=== PATIENT | female | born 1995 | race Caucasian/White ===

== ENCOUNTER 2018-01-17 10:02 | Emergency (ER) | payer OTHER ==
[~2018-01-17] VITALS: Ht 172.7 cm; Wt 86.2 kg
[2018-01-17] MEDS ORDERED: IV NORMAL SALINE 1,000ML 1,000 ML IV SCH (10:18)
[2018-01-17] MEDS ORDERED: ONDANSETRON PF 4 MG/2 ML VIAL. IV ONE (10:45)
[2018-01-17] MEDS ORDERED: FAMOTIDINE 20 MG/2 ML VIAL IVP ONE (10:45)
[2018-01-17 10:53] LABS: BASO % 1 % (0-3); EOS # 0.2 x10^3/uL (0.0-0.7); EOS % 3 % (0-3); HEMATOCRIT 40.3 % (36.0-47.0); HEMOGLOBIN 13.5 g/dL (12.0-15.5); LYMPH # 2.5 x10^3/uL (1.0-4.8); LYMPH % 36 % (24-48); MEAN CORPUSCULAR HEMOGLOBIN 29 pg (25-35); MEAN CORPUSCULAR HGB CONC 34 g/dL (31-37); MEAN CORPUSCULAR VOLUME 87 fL (79-100); MONO # 0.6 x10^3/uL (0.0-1.1); MONO % 9 % (0-9); NEUT # 3.7 x10^3uL (1.8-7.7); NEUT % 52 % (31-73); PLATELET COUNT 217 x10^3/uL (140-400); RED BLOOD COUNT 4.62 x10^6/uL (3.50-5.40); RED CELL DISTRIBUTION WIDTH 12.5 % (11.5-14.5); WHITE BLOOD COUNT 7.1 x10^3/uL (4.0-11.0)
--- NOTE | 2018-01-17 11:01 | PHYS DOC ---
Past History Past Medical History: Anxiety, Other Past Surgical History: Other Alcohol Use: Rarely Drug Use: None Adult General Chief Complaint Chief Complaint: NAUSEA/VOMITING/DIARRHEA HPI HPI Patient is a 22 year old female who presents with complaining of nausea and vomiting and abdominal pain. Patient states she woke up at 8:30 because of epigastric squeezing and constant pain without radiation and rated her pain 8/ 10. Patient complaining of 2 episodes of vomiting with bile material without diarrhea and fever and chills. Patient denies history of vomiting at the states she had had episode of abdominal pain and elevation of liver function tests with outpatient unremarkable upper abdominal ultrasound. Review of Systems Review of Systems Constitutional: Denies fever or chills [] Eyes: Denies change in visual acuity, redness, or eye pain [] HENT: Denies nasal congestion or sore throat [] Respiratory: Denies cough or shortness of breath [] Cardiovascular: No additional information not addressed in HPI [] GI: Reports abdominal pain, nausea, vomiting, denies bloody stools or diarrhea [ ] : Denies dysuria or hematuria [] Musculoskeletal: Denies back pain or joint pain [] Integument: Denies rash or skin lesions [] Neurologic: Denies headache, focal weakness or sensory changes [] Endocrine: Denies polyuria or polydipsia [] All other systems were reviewed and found to be within normal limits, except as documented in this note. Current Medications Current Medications Current Medications Medications (Trade) Dose Ordered Sig/Earl Start Time Stop Time Status Last Admin Dose Admin Famotidine (Pepcid Vial) 20 mg 1X ONCE 01/17/18 10:45 01/17/18 10:46 DC Ondansetron HCl (Zofran) 4 mg 1X ONCE 01/17/18 10:45 01/17/18 10:46 DC Sodium Chloride 1,000 ml @ 1,000 mls/hr Q1H 01/17/18 10:18 01/17/18 11:17 Allergies Allergies Allergies Coded Allergies Type Severity Reaction Last Updated Verified codeine Adverse Reaction Mild doesn't feel good 01/17/18 Yes Physical Exam Physical Exam Constitutional: Well developed, well nourished, mild distress, non-toxic appearance. [] HENT: Normocephalic, atraumatic,oropharynx moist, no oral exudates, nose normal. [] Eyes: PERRLA, EOMI, conjunctiva normal, no discharge. [] Neck: Normal range of motion, no tenderness, supple, no stridor. [] Cardiovascular:Heart rate regular rhythm, no murmur [] Lungs & Thorax: Bilateral breath sounds clear to auscultation [] Abdomen: Bowel sounds normal, soft, no tenderness, no masses, no pulsatile masses. [] Skin: Warm, dry, no erythema, no rash. [] Back: No tenderness, no CVA tenderness. [] Extremities: No tenderness, no cyanosis, no clubbing, ROM intact, no edema. [] Neurologic: Alert and oriented X 3, normal motor function, normal sensory function, no focal deficits noted. [] Psychologic: Affect normal, judgement normal, mood normal. [] Current Patient Data Vital Signs Vital Signs Date Time Temp Pulse Resp B/P (MAP) Pulse Ox O2 Delivery O2 Flow Rate FiO2 01/17/18 10:05 98.1 102 20 100 Room Air EKG EKG [] Radiology/Procedures Radiology/Procedures [] Course & Med Decision Making Course & Med Decision Making Pertinent Labs and Imaging studies reviewed. (See chart for details) Evaluation of patient in ER showed 22-year-old male patient with complaining of nausea and vomiting and abdominal pain since this morning. Patient treated with IV fluid and Zofran and Pepcid and felt better. Labs was unremarkable. Patient states she had history of elevation of liver function tests and had negative evaluation in her [facility] her mother was concern for gallbladder ultrasound did not show gallbladder clearly. Patient felt to on-call GI and instructed to avoid of eating greasy and spicy food. Dragon Disclaimer Dragon Disclaimer This electronic medical record was generated, in whole or in part, using a voice recognition dictation system. Departure Departure: Impression: Primary Impression: Epigastric pain Additional Impression: Nausea and vomiting Disposition: 01 HOME, SELF-CARE (@6277) Condition: IMPROVED Referrals: NON,STAFF (PCP) Patient Instructions: Abdominal Pain, Nausea and Vomiting Additional Instructions: Drink plenty of liquids Follow-up with your primary care physician in 3-5 days Return to ER if not getting better Avoid of eating spicy and greasy foods Follow-up with on-call GI Dr Desouza call at to make an appointment in 2 or 3 days Scripts Ranitidine Hcl (ZANTAC) 150 Mg Tablet 1 TAB PO BID for epigastric pain, #20 TAB 3 Refills Prov: GUIDO MILLER MD 01/17/18 Ondansetron Hcl (ZOFRAN) 4 Mg Tablet 1 TAB PO Q6HRS for nausea and vomiting, #12 TAB Prov: GUIDO MILLER MD 01/17/18 Problem Qualifiers GUIDO MILLER MD Jan 17, 2018 11:01
[2018-01-17 11:11] LABS: ALBUMIN 3.5 g/dL (3.4-5.0); ALBUMIN/GLOBULIN RATIO 0.8 (1.0-1.7); CREATININE 0.8 mg/dL (0.6-1.0); GFR 88.1; POTASSIUM 3.6 mmol/L (3.5-5.1); TOTAL BILIRUBIN 0.2 mg/dL (0.2-1.0); TOTAL PROTEIN 8.1 g/dL (6.4-8.2)
[2018-01-17 12:00] LABS: CLARITY,URINE CLOUDY; COLOR,URINE YELLOW
[2018-01-17 12:01] LABS: AMORPHOUS SEDIMENT,UR PRESENT /HPF; BACTERIA,URINE MOD /HPF (0-FEW); BILIRUBIN,URINE NEG (NEG); GLUCOSE,URINE NEG (NEG); HYALINE CASTS, URINE OCC /HPF; NITRITE,URINE NEG (NEG); SQUAMOUS EPITHELIAL CELL,UR MOD /LPF; UROBILINOGEN,URINE 0.2 mg/dL (0.2 mg/dL)
[2018-01-17 12:31] LABS: U PREG PATIENT NEGATIVE (NEG)
--- NOTE | 2018-01-17 12:54 | RAD ---
Right upper quadrant abdominal ultrasound, 01/17/2018: HISTORY: Epigastric pain, nausea and vomiting The gallbladder could not be visualized. There is no given history of previous surgery. The common hepatic duct is of normal caliber. The visualized portions of the liver, pancreas and right kidney show no abnormality. IMPRESSION: Nonvisualization of the gallbladder. This can be seen with a contracted gallbladder or in a nonfasting patient. Obscuration by overlying bowel is also a possibility. Sonographic follow-up or CT scanning may be considered for further evaluation. Electronically signed by: Ezequiel Dasilva MD (01/17/2018 12:51 PM) [facility]
[2018-01-17] MEDS ORDERED: ONDA4TAB7 PO (13:03)
[2018-01-17] MEDS ORDERED: RANI150T21 PO (13:03)
[2018-01-17 13:18] VITALS: BP 134/67
== END 2018-01-17 13:21 | disposition home or self-care (01) ==
LOC: ER 10:02
DX: R10.13 Epigastric pain (principal); R11.2 Nausea with vomiting, unspecified; F41.9 Anxiety disorder, unspecified; Z88.5 Allergy status to narcotic agent
CPT/HCPCS: 36415; 76705; 80053; 81001; 81025; 83690; 85025; 87086; 96361; 96374; 96375; 99284; J2405; J3490; J7030

== ENCOUNTER → 2018-01-30 | Outpatient (CLI) | payer OTHER ==
[2018-01-17 13:18] VITALS: BP 134/67
[~2018-01-30] MED LIST: MORPHINE SULFATE 4 MG/ML DISP.SYRIN. IM ONE; MORPHINE SULFATE 4 MG/ML DISP.SYRIN. IV ONE; ONDA4TAB7 PO; RANI150T21 PO
--- NOTE | 2018-01-30 17:06 | RAD ---
Exam performed: Nuclear medicine hepatobiliary scan. History: History of nausea, vomiting, epigastric pain Following intravenous administration of 5.5 mCi of Choletec tagged with Tc, sequential gamma camera images of the right upper quadrant of the abdomen were obtained. There is prompt accumulation of radionuclide in the liver which appears to be unremarkable Prompt accumulation in the central, common bile duct and small bowel is noted. Initially the gallbladder was not visualized. 4 mg of morphine was given after 60 minutes. Subsequently the gallbladder was visualized after morphine was given Impression: 1. No evidence of cystic duct obstruction. 2. Delayed filling of the gallbladder, nonspecific could be due to chronic cholecystitis. Correlate clinically. Electronically signed by: Cameron Estrella MD (01/30/2018 5:02 PM) [id number]
--- NOTE | 2018-01-30 17:16 | RAD ---
Complete abdominal ultrasound History: Nausea for a month, single vomiting episode.. Findings: Aorta: No evidence of aneurysm. Inferior vena cava: Patent Pancreas: Unremarkable Liver: Measures at least upper limits normal, 18.5 cm. Gallbladder: No evidence of cholelithiasis, gallbladder wall thickening or pericholecystic fluid. Bile ducts: No evidence of dilatation Right kidney: 11.3 cm length. No evidence of hydronephrosis. Left kidney: 11.1 cm length. No evidence of hydronephrosis. Spleen: Not enlarged Impression: 1. No evidence of gallbladder abnormality. 2. Liver is at least upper limits normal size. Electronically signed by: Ricky Hernandes MD (01/30/2018 5:12 PM) [facility]
== END | disposition home or self-care (01) ==
LOC: US 07:36
PROVIDERS: ATTEND Internal Medicine Gastroenterology
DX: K82.8 Other specified diseases of gallbladder (principal)
CPT/HCPCS: 76700; A9537; J2270